=== PATIENT | male | born 1990 | race Two or more races ===

== ENCOUNTER 2022-03-27 20:46 | Emergency (ER) | payer OTHER ==
[~2022-03-27] VITALS: Ht 172.7 cm; Wt 73.9 kg
[2022-03-28] MEDS ORDERED: METAXALONE800 MG PO (00:36)
[2022-03-28] MEDS ORDERED: CELEBREX200MG PO (00:36)
[2022-03-28] MEDS ORDERED: MEDROLPACK PO (00:36)
== END 2022-03-28 00:47 | disposition home or self-care (01) ==
LOC: ER 20:46
DX: R07.89 Other chest pain (principal); M54.9 Dorsalgia, unspecified